=== PATIENT | female | born 2000 | race Caucasian/White ===

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

== ENCOUNTER 2018-05-16 18:03 | Emergency (ER) | payer OTHER ==
[~2018-05-16] VITALS: Ht 154.9 cm; Wt 58.1 kg
[~2018-05-16 18:03] MED LIST changes: +CIPRO250 MG PO; +IRON18 MG PO; +KLOR-CON 1010 MEQ PO
[2018-05-16] MEDS ORDERED: MUCINEX600 MG PO (18:54)
== END 2018-05-16 18:50 | disposition home or self-care (01) ==
LOC: ED 18:03
DX: J02.9 Acute pharyngitis, unspecified (principal)

== ENCOUNTER 2018-06-14 23:20 | Emergency (ER) | payer SELFPAY ==
[~2018-06-14] VITALS: Ht 149.9 cm; Wt 52.2 kg
[~2018-06-14 23:20] MED LIST changes: +MUCINEX600 MG PO
--- OUTSIDE RECORDS SUMMARY | 2018-06-14 23:22 | XMS ---
PreManage Notification: CLAYTON SIDDIQI Security Cafeteria Cook Events No recent Security Events currently on file CRITERIA MET - [facility] - 2 Visits in 30 Days CARE PROVIDERS There are no care providers on record at this time. Venita has no Care Guidelines for this patient. Sabrina VISIT COUNT (12 MO.) 3 [facility] [place] [facility] TOTAL 3 NOTE: Visits indicate total known visits. ED/C VISIT TRACKING (12 MO.) 06/14/2018 23:[address] [facility] [place] TYPE: Emergency COMPLAINT: - SWOLLEN THROAT 05/16/2018 18:04 [facility] [place] TYPE: Emergency COMPLAINT: - COLD SYMPTOMS DIAGNOSES: - Acute pharyngitis, unspecified 10/22/2017 16:07 [facility] [place] TYPE: Emergency COMPLAINT: - FEVER/POSS UTI DIAGNOSES: - Allergy status to other drugs, medicaments and biological substances status - Allergy status to narcotic agent status - Allergy status to penicillin - Hypokalemia - Unspecified abdominal pain - Urinary tract infection, site not specified INPATIENT VISIT TRACKING (12 MO.) No inpatient visits to display in this time frame [id number]
== END 2018-06-15 00:07 | disposition home or self-care (01) ==
LOC: ED 23:20
DX: J06.9 Acute upper respiratory infection, unspecified (principal); G43.909 Migraine, unspecified, not intractable, without status migrainosus; Z88.0 Allergy status to penicillin; Z88.5 Allergy status to narcotic agent; Z88.8 Allergy status to other drugs, medicaments and biological substances
CPT/HCPCS: 87081; 87880; 99283

== ENCOUNTER 2018-10-15 17:45 | Emergency (ER) | payer SELFPAY ==
[~2018-10-15] VITALS: Ht 149.9 cm; Wt 52.2 kg
--- OUTSIDE RECORDS SUMMARY | 2018-10-15 17:48 | XMS ---
PreManage Notification: CLAYTON SIDDIQI Security Inspector Motor Vehicles Events No recent Security Events currently on file CRITERIA MET - Group Notification - [facility] - Has Care Guidelines CARE PROVIDERS There are no care providers on record at this time. Venita has no Care Guidelines for this patient. Care History Medical/Surgical 06/20/2018 [facility] - [facility] HAS TRIED TO CONTACT PATIENT TO SET UP INSURANCE. - PATIENT HAS NOT ANSWERED PHONE CALLS AND DOES NOT HAVE A VOICEMAIL SET UP. - [facility] SENT PATIENT A LETTER FOR FURTHER HELP/CONTACT. 06/19/2018 [facility] - [facility] CONTACTED PATIENT. DISCUSSED PATIENT APPLYING FOR MEDICAL BENEFITS. - [facility] CONTACTED [place] [phone] TO HAVE [facility] CONTACT PATIENT TO HELP APPLY FOR MEDICAL BENEFITS. - ONCE INSURANCE IS ESTABLISHED PCP CAN BE ESTABLISHED. EElizabeth VISIT COUNT (12 MO.) 4 [facility] TOTAL 4 NOTE: Visits indicate total known visits. ED/UCC VISIT TRACKING (12 MO.) 10/15/2018 17:46 [facility] [place] TYPE: Emergency COMPLAINT: - EAR ACHE 06/14/2018 23:21 [facility] [place] TYPE: Emergency COMPLAINT: - SWOLLEN THROAT DIAGNOSES: - Allergy status to narcotic agent status - Acute pharyngitis, unspecified - Allergy status to penicillin - Acute upper respiratory infection, unspecified - Allergy status to other drugs, medicaments and biological substances status - Migraine, unspecified, not intractable, without status migrainosus 05/16/2018 18:04 [facility] [place] TYPE: Emergency [...] visits to display in this time frame [id number]
== END 2018-10-15 19:00 | disposition home or self-care (01) ==
LOC: ED 17:45
DX: H60.92 Unspecified otitis externa, left ear (principal); G43.909 Migraine, unspecified, not intractable, without status migrainosus; Z88.0 Allergy status to penicillin; Z88.8 Allergy status to other drugs, medicaments and biological substances; Z88.5 Allergy status to narcotic agent
CPT/HCPCS: 99282

== ENCOUNTER 2019-01-19 11:32 | Emergency (ER) | payer SELFPAY ==
[~2019-01-19] VITALS: Ht 152.4 cm; Wt 54.5 kg
--- OUTSIDE RECORDS SUMMARY | 2019-01-19 11:36 | XMS ---
PreManage Notification: CLAYTON SIDDIQI Security Branch Account Manager Events No recent Security Events currently on file CRITERIA MET - Group Notification - [facility] - Has Care Guidelines CARE PROVIDERS There are no care providers on record at this time. Venita has no Care Guidelines for this patient. Care History Medical/Surgical 10/17/2018 [facility] - W IS UNABLE TO CONTACT PATIENT TO PROVIDE INFORMATION ON APPLYING FOR MEDICAL BENEFITS. - PATIENT CONTACT NUMBER DOES NOT HAVE A VOICEMAIL BOX SET UP. - PLEASE HAVE PATIENT CONTACT [facility] TO APPLY FOR INSURANCE -IF SEEN IN THE ED. 06/20/2018 [facility] - [place] HAS TRIED TO CONTACT PATIENT TO SET UP INSURANCE. - PATIENT HAS NOT ANSWERED PHONE CALLS AND DOES NOT HAVE A VOICEMAIL SET UP. - [facility] SENT PATIENT A LETTER FOR FURTHER HELP/CONTACT. 06/19/2018 [facility] - W CONTACTED PATIENT. DISCUSSED PATIENT APPLYING FOR MEDICAL BENEFITS. - W CONTACTED [place] [phone] TO HAVE [facility] CONTACT PATIENT TO HELP APPLY FOR MEDICAL BENEFITS. - ONCE INSURANCE IS ESTABLISHED PCP CAN BE ESTABLISHED. E.D. VISIT COUNT (12 MO.) 4 [facility] TOTAL 4 NOTE: Visits indicate total known visits. ED/UCC VISIT TRACKING (12 MO.) 01/19/2019 11:33 [facility] [place] TYPE: Emergency COMPLAINT: - ,VOMITING. 10/15/2018 17:46 [facility] [place] TYPE: Emergency COMPLAINT: - EAR ACHE DIAGNOSES: - Allergy status to penicillin - Allergy status to oth drug/meds/biol subst status - Migraine, unsp, not intractable, without status migrainosus - Otalgia, left ear - Unspecified otitis externa, left ear - Allergy status to narcotic agent status 06/14/2018 23:21 [facility] [place] TYPE: Emergency COMPLAINT: - SWOLLEN THROAT DIAGNOSES: - Allergy status to narcotic agent status - Acute pharyngitis, unspecified - Allergy status to penicillin - Acute upper respiratory infection, unspecified - Allergy status to oth drug/meds/biol subst status - Migraine, unsp, not intractable, without status migrainosus 05/16/2018 18:04 [facility] [place] TYPE: Emergency COMPLAINT: - COLD SYMPTOMS DIAGNOSES: - Acute pharyngitis, unspecified INPATIENT VISIT TRACKING (12 MO.) No inpatient visits to display in this time frame [id number]
[2019-01-19] MEDS ORDERED: ONDANSETRON ODT4 MG SL (13:42)
== END 2019-01-19 13:57 | disposition home or self-care (01) ==
LOC: ED 11:32
DX: O21.9 Vomiting of pregnancy, unspecified (principal); Z3A.01 Less than 8 weeks gestation of pregnancy; Z88.0 Allergy status to penicillin; Z88.5 Allergy status to narcotic agent; Z88.8 Allergy status to other drugs, medicaments and biological substances
CPT/HCPCS: 81001; 84703; 99284

== ENCOUNTER 2019-09-02 11:06 | Inpatient (IN) | payer OTHER ==
[~2019-09-02 11:06] MED LIST changes: +ONDANSETRON ODT4 MG SL
--- NOTE | 2019-09-04 13:44 | NUR ---
09/04/19 1344 Jerri Scales 1320 PT ARRIVED IN PACU WIDE AWAKE. FBC RN AT BEDSIDE HELPING MOM BREASTFEED BABY. FATHER OF BABY AT BEDSIDE. 1340 FBC RN HELPING PT REPOSITION BABY TO OTHER BREAST. NO C/O'S.
--- NOTE | 2019-09-05 13:14 | PR ---
[facility] [address] [facility] [place] [address] Signed PP Progress Notes Datetime Report Generated by CPN: 09/05/2019 13:14 SUBJECTIVE: [id number] Pain: Within normal limits Nausea/Vomiting: Denies Vital Signs: [id number] Vital Signs: Reviewed; Within Normal Limits Notable Details: PP Hgb/Hct = 10.3/33.2 EXAM: [id number] Abdomen/Uterus: Normal Lochia: Normal Extremities: Normal Incision: Normal IMPRESSION/PLAN/PROCEDURES: [id number] Impression: Normal progression Plan: Continue present management Procedures: None Progress Notes: Doing well, without complaitn. Green removed, tolerating food well. Signing Physician: Felipe Adkins MD Copies: ~ *Electronically Signed* 09/05/19 1314 FELIPE ADKINS MD PATIENT NAME: CLAYTON SIDDIQI PROGRESS NOTE DATE OF : 98 PHYSICIAN: FELIPE ADKINS MD RPT #: [id number] REPORT IS CONFIDENTIAL AND NOT TO BE RELEASED WITHOUT AUTHORIZATION
--- NOTE | 2019-09-05 13:17 | OR ---
[facility] [address] [facility] [place], [place] [address] Signed DATE OF OPERATION: 09/04/2019 SURGEON: Matt Fuentes MD PREOPERATIVE DIAGNOSES: Term , previous section. POSTOPERATIVE DIAGNOSIS: Term , previous section. PROCEDURE: Repeat low transverse segment section, delivery of live female infant. ATTORNEY RECRUITER: Dr. Gong. ANESTHESIA: Spinal. ESTIMATED BLOOD LOSS: 500 mL. COMPLICATIONS: None. DRAINS: Green to bladder. FINDINGS: Live female infant, Apgars 9 and 9, weight 6 pounds 7 ounces. Normal uterus, normal tubes and ovaries bilateral. DESCRIPTION OF PROCEDURE: The patient was brought to the operating room, placed in supine position. After adequate spinal anesthesia was obtained, she was prepped and draped in usual sterile fashion. Green catheter was placed in the bladder. The previous Pfannenstiel skin incision scar was removed using scalpel and then the subcutaneous tissue dissected with the Bovie. The fascia was nicked with scalpel and extended in transverse fashion using curved scissors. The underlying abdominal musculature was bluntly and sharply from the fascia above and below the incision. The abdominal musculature was bluntly and Electronically Signed By: MATT FUENTES MD 09/05/19 1317 PATIENT NAME: CLAYTON SIDDIQI OPERATIVE REPORT DATE OF : 98 REPORT #: [id number] PHYSICIAN: MATT FUENTES MD PCP: NO PRIMARY CARE PHYSICIAN REPORT IS CONFIDENTIAL AND NOT TO BE RELEASED WITHOUT AUTHORIZATION [facility] [address] [place], [place] [address] Signed sharply along the midline. The peritoneum was grasped, hemostats elevated, nicked with curved scissors and extended in vertical fashion using curved scissors. The Brady self-retaining retractor was inserted into the incision and tightened in place. The lower uterine segment was identified and the lower uterine segment carefully nicked with scalpel, bulging bag of light meconium stained fluid came from the incision, this was opened with pickups with teeth. The infant was noted to be in the vertex ROT presentation. The head easily delivered from the incision. The rest of the infant was easily delivered from the incision and cord doubly clamped and cut and the passed off table in good condition to awaiting nurse. The cord blood was obtained and the placenta manually removed and the uterine cavity explored a lap pad to remove any retained membranes. An angle stitch of 0 Monocryl was placed at one in the incision and a running locking stitch of 0 Monocryl starting at the other end used to close the incision. A 2nd running stitch of 0 Monocryl was used to imbricate the 1st layer. Good hemostasis was obtained. The entire pelvis was irrigated, suctioned, examined noted to have good hemostasis. The Brady retractor was then removed and the sheet of ACell placed over the lower uterine segment. To help with healing, the anterior peritoneum was then closed using running stitch of 2-0 Vicryl suture. The abdominal musculature was closed using interrupted stitches of 0 Vicryl suture. The abdominal wall incision was irrigated, suctioned, examined any bleeding spots cauterized with the Bovie. When good hemostasis was obtained, powdered ACell sprinkled over the abdominal musculature to help with healing and then the fascia closed using 2 running stitch of 0 Vicryl suture meeting in the midline. Subcutaneous tissue was irrigated, suctioned, examined and any bleeding spots cauterized with the Bovie. Subcutaneous tissue was closed using interrupted stitches of 3-0 Vicryl suture. Skin reapproximated using skin clips. The patient tolerated the procedure well and went to recovery room in good condition. The sponge, needle and instrument count were correct at the end of procedure. MD JUDY Gillis/MODL /[id number] Copies: Electronically Signed By: MATT FUENTES MD 09/05/19 1317 PATIENT NAME: CLAYTON SIDDIQI OPERATIVE REPORT DATE OF : 98 REPORT #: [id number] PHYSICIAN: MATT FUENTES MD PCP: NO PRIMARY CARE PHYSICIAN REPORT IS CONFIDENTIAL AND NOT TO BE RELEASED WITHOUT AUTHORIZATION [facility] [address] [place] [address] Signed ~ Electronically Signed By: MATT FUENTES MD 09/05/19 1317 PATIENT NAME: CLAYTON SIDDIQI OPERATIVE REPORT DATE OF : 98 REPORT #: [id number] PHYSICIAN: MATT FUENTES MD PCP: NO PRIMARY CARE PHYSICIAN REPORT IS CONFIDENTIAL AND NOT TO BE RELEASED WITHOUT AUTHORIZATION
--- NOTE | 2019-09-06 11:06 | PR ---
[facility] [address] [facility] [place] [address] Signed PP Progress Notes Datetime Report Generated by CPN: 09/06/2019 11:05 SUBJECTIVE: [id number] Pain: Within normal limits Nausea/Vomiting: Denies Vital Signs: [id number] Vital Signs: Reviewed; Within Normal Limits Notable Details: PP Hgb/Hct = 10.3/33.2 EXAM: [id number] Abdomen/Uterus: Normal Lochia: Normal Extremities: Normal Incision: Normal IMPRESSION/PLAN/PROCEDURES: [id number] Impression: Normal progression Plan: Discharge Procedures: None Progress Notes: Doing well, without complaint, ready to go home. Signing Physician: Felipe Adkins MD Copies: ~ *Electronically Signed* 09/06/19 1105 FELIPE ADKINS MD PATIENT NAME: CLAYTON SIDDIQI PROGRESS NOTE DATE OF : 98 PHYSICIAN: FELIPE ADKINS MD RPT #: [id number] REPORT IS CONFIDENTIAL AND NOT TO BE RELEASED WITHOUT AUTHORIZATION
== END 2019-09-06 11:45 | disposition home or self-care (01) | DRG 788 ==
LOC: FBC 09-04 06:45
PROVIDERS: ADMIT General Practice
PROC: 10D00Z1 Extraction of Products of Conception, Low, Open Approach (ICD-10-PCS; principal; 2019-09-04 12:45)
DX: O34.211 Maternal care for low transverse scar from previous cesarean delivery (principal); N85.8 Other specified noninflammatory disorders of uterus; O32.2XX0 Maternal care for transverse and oblique lie, not applicable or unspecified; Z37.0 Single live birth; Z3A.39 39 weeks gestation of pregnancy; O77.0 Labor and delivery complicated by meconium in amniotic fluid; Z79.82 Long term (current) use of aspirin; Z88.5 Allergy status to narcotic agent; Z88.0 Allergy status to penicillin; Z88.8 Allergy status to other drugs, medicaments and biological substances
CPT/HCPCS: 36415; 85027; A9270; J0690; J2001; J2274; J2300; J2405; J2590; J3010; J7121

== ENCOUNTER 2022-10-24 14:43 | Emergency (ER) | payer OTHER ==
[~2022-10-24] VITALS: Ht 152.4 cm; Wt 54.5 kg
--- OUTSIDE RECORDS SUMMARY | 2022-10-24 14:47 | XMS ---
PreManage Notification: CLAYTON SIDDIQI Security Instrumentation Engineer Events No recent Security Events currently on file CRITERIA MET - Group Notification CARE PROVIDERS -, [place]- Dentist: Staff Software Engineer [facility] PHONE: [phone] Venita has no Care Guidelines for this patient. Care History Medical/Surgical 01/21/2019 [facility] - PATIENT JOMARN- DR ADKINS- FOLLOW UP APT 01/30/19. 10/17/2018 [facility] - [facility] IS UNABLE TO CONTACT PATIENT TO PROVIDE INFORMATION ON APPLYING FOR MEDICAL BENEFITS. - PATIENT CONTACT NUMBER DOES NOT HAVE A VOICEMAIL BOX SET UP. - PLEASE HAVE PATIENT CONTACT [facility] TO APPLY FOR INSURANCE -IF SEEN IN THE ED. [facility] TO [facility] UP [facility]ANCE. - PATIENT HAS NOT ANSWERED PHONE CALLS AND DOES NOT HAVE A VOICEMAIL SET UP. - [facility] SENT PATIENT A LETTER FOR FURTHER HELP/CONTACT. E.D. VISIT COUNT (12 MO.) 1 [facility] TOTAL 1 NOTE: Visits indicate total known visits. ED/UCC VISIT TRACKING (12 MO.) 10/24/2022 14:[address] [facility] [place] TYPE: Emergency COMPLAINT: - DIFFICULTY BREATHING INPATIENT VISIT TRACKING (12 MO.) No inpatient visits to display in this time frame [email or web address]
[2022-10-24 17:29] LABS: INFLUENZA B NAA NEGATIVE (NEGATIVE); RESPIRATORY SYNCYTIAL VIR NAA NEGATIVE (NEGATIVE)
[2022-10-24] MEDS ORDERED: PREDNISONE20 MG PO (19:19)
[2022-10-24 19:26] VITALS: BP 130/88
== END 2022-10-24 19:27 | disposition home or self-care (01) ==
LOC: ED 14:43
PROVIDERS: Emergency Medicine
DX: J45.909 Unspecified asthma, uncomplicated (principal); Z88.0 Allergy status to penicillin; Z88.5 Allergy status to narcotic agent; Z20.822 Contact with and (suspected) exposure to COVID-19
CPT/HCPCS: 87502; 94640; 94664; U0002

== ENCOUNTER 2022-12-24 12:26 | Emergency (ER) | payer OTHER ==
[~2022-12-24] VITALS: Ht 152.4 cm; Wt 67.6 kg
[~2022-12-24 12:26] MED LIST changes: +PREDNISONE20 MG PO
--- OUTSIDE RECORDS SUMMARY | 2022-12-24 12:28 | XMS ---
PreManage Notification: CLAYTON SIDDIQI Security Overhead Crane Technician Events No recent Security Events currently on file CRITERIA MET - Group Notification CARE PROVIDERS -, [place]- Dentist: Specifications Writer [facility] PHONE: [phone] Venita has no Care Guidelines for this patient. Care History Medical/Surgical 01/21/2019 [facility] - PATIENT JOMARN- DR ADKINS- FOLLOW UP APT 01/30/19. 10/17/2018 [facility] - [facility] IS UNABLE TO CONTACT PATIENT TO PROVIDE INFORMATION ON APPLYING FOR MEDICAL BENEFITS. - PATIENT CONTACT NUMBER DOES NOT HAVE A VOICEMAIL BOX SET UP. - PLEASE HAVE PATIENT CONTACT [facility] TO APPLY FOR INSURANCE -IF SEEN IN THE ED. [facility]. - PATIENT HAS NOT ANSWERED PHONE CALLS AND DOES NOT HAVE A VOICEMAIL SET UP. - [facility] SENT PATIENT A LETTER FOR FURTHER HELP/CONTACT. E.D. VISIT COUNT (12 MO.) 2 [facility] TOTAL 2 NOTE: Visits indicate total known visits. ED/UCC VISIT TRACKING (12 MO.) 12/24/2022 12:27 [facility] [place] TYPE: Emergency COMPLAINT: - REACTION TO CHEMICAL HAIR DYE 10/24/2022 14:44 [facility] [place] TYPE: Emergency COMPLAINT: - DIFFICULTY BREATHING DIAGNOSES: - Allergy status to narcotic agent - Allergy status to penicillin - Contact with and (suspected) exposure to COVID-19 - Shortness of breath - Unspecified asthma, uncomplicated INPATIENT VISIT TRACKING (12 MO.) No inpatient visits to display in this time frame [id number]
[2022-12-24] MEDS ORDERED: METHYLPREDNISOLO4 M1 PO (13:19)
[2022-12-24] MEDS ORDERED: ZYRTEC10 M3 PO (13:19)
[2022-12-24 13:41] VITALS: BP 128/78
== END 2022-12-24 13:44 | disposition home or self-care (01) ==
LOC: ED 12:26
DX: T78.49XA Other allergy, initial encounter (principal); Z88.0 Allergy status to penicillin; Z88.5 Allergy status to narcotic agent; Z88.6 Allergy status to analgesic agent
CPT/HCPCS: J1200; J3301

== ENCOUNTER 2023-01-14 20:46 | Emergency (ER) | payer OTHER ==
[~2023-01-14] VITALS: Ht 152.4 cm; Wt 69.6 kg
[~2023-01-14 20:46] MED LIST changes: +METHYLPREDNISOLO4 M1 PO; +ZYRTEC10 M3 PO
--- OUTSIDE RECORDS SUMMARY | 2023-01-14 20:48 | XMS ---
PreManage Notification: CLAYTON MONTIEL Security Broach Operator Events No recent Security Events currently on file CRITERIA MET - Group Notification - [facility] - 2 Visits in 30 Days CARE PROVIDERS -[place]- Dentist: [facility] PHONE: [phone] Venita has no Care Guidelines for this patient. Care History Medical/Surgical 01/21/2019 [facility] - PATIENT SARABJITGYN- DR ADKINS- FOLLOW UP APT 01/30/19. 10/17/2018 [facility] - W IS UNABLE TO CONTACT PATIENT TO PROVIDE INFORMATION ON APPLYING FOR MEDICAL BENEFITS. - PATIENT CONTACT NUMBER DOES NOT HAVE A VOICEMAIL BOX SET UP. - PLEASE HAVE PATIENT CONTACT [facility] TO APPLY FOR INSURANCE -IF SEEN IN THE ED. 06/20/2018 [facility] - [facility] HAS TRIED TO CONTACT PATIENT TO SET UP INSURANCE. - PATIENT HAS NOT ANSWERED PHONE CALLS AND DOES NOT HAVE A VOICEMAIL SET UP. - [facility] SENT PATIENT A LETTER FOR FURTHER HELP/CONTACT. E.Nigel VISIT COUNT (12 MO.) 3 [facility] TOTAL 3 NOTE: Visits indicate total known visits. ED/UCC VISIT TRACKING (12 MO.) 01/14/2023 20:46 [facility] [place] TYPE: Emergency COMPLAINT: - SOB 12/24/2022 12:27 [facility] [place] TYPE: Emergency COMPLAINT: - REACTION TO CHEMICAL HAIR DYE DIAGNOSES: - Allergy status to analgesic agent - Allergy status to narcotic agent - Allergy status to penicillin - Localized swelling, mass and lump, head - Other allergy, initial encounter 10/24/2022 14:[address] [facility] [place] TYPE: Emergency COMPLAINT: - DIFFICULTY BREATHING DIAGNOSES: - Allergy status to narcotic agent - Allergy status to penicillin - Contact with and (suspected) exposure to COVID-19 - Shortness of breath - Unspecified asthma, uncomplicated INPATIENT VISIT TRACKING (12 MO.) No inpatient visits to display in this time frame [email or web address]
[2023-01-14 23:20] VITALS: BP 130/85
--- NOTE | 2023-01-15 22:52 | EKG ---
[facility] [address] [facility] [place] [address] Signed Sinus tachycardia Low voltage QRS Septal infarct , age undetermined Abnormal ECG No previous ECGs available Confirmed by Jose Alvarado MD () on 01/15/2023 10:52:00 PM Electronically Signed By: JOSE ALVARADO MD 01/15/23 2252 PATIENT NAME: CLAYTON MONTIEL Electrocardiogram DATE OF : [birth year] PHYSICIAN: JOSE ALVARADO MD REPORT #: [id number] REPORT IS CONFIDENTIAL AND NOT TO BE RELEASED WITHOUT AUTHORIZATION
== END 2023-01-14 23:20 | disposition home or self-care (01) ==
LOC: ED 20:46
DX: J45.901 Unspecified asthma with (acute) exacerbation (principal); Z88.0 Allergy status to penicillin; Z88.5 Allergy status to narcotic agent; Z88.6 Allergy status to analgesic agent
CPT/HCPCS: 71045; 80053; 83735; 84484; 85025; 93005; 93010; 94640; J2930